=== PATIENT | female | born 1995 ===

== ENCOUNTER 2019-08-20 13:59 | Inpatient (IN) | payer OTHER ==
[~2019-08-20] VITALS: Ht 154.9 cm; Wt 63.5 kg
[2019-08-20] MEDS ORDERED: PRENATAL TABLE1 EAC1 PO (15:10)
[2019-08-20] MEDS ORDERED: VALTREX1000 MG PO (15:10)
== END 2019-08-23 16:55 | disposition home or self-care (01) | DRG 807 ==
LOC: OB/GYN 13:59 → LDR 13:59 → OB/GYN 08-21 01:38
PROVIDERS: ADMIT Obstetrics & Gynecology; ATTEND Obstetrics & Gynecology
PROC: 4A0HXFZ Measurement of Products of Conception, Cardiac Rhythm, External Approach (ICD-10-PCS; 2019-08-20)
PROC: 10E0XZZ Delivery of Products of Conception, External Approach (ICD-10-PCS; principal; 2019-08-21)
PROC: 0KQM0ZZ Repair Perineum Muscle, Open Approach (ICD-10-PCS; 2019-08-21)
DX: O70.1 Second degree perineal laceration during delivery (principal); Z37.0 Single live birth; Z3A.39 39 weeks gestation of pregnancy

== ENCOUNTER 2024-08-05 13:30 | Inpatient (IN) | payer OTHER ==
[~2024-08-05] VITALS: Ht 154.9 cm; Wt 70.3 kg
[~2024-08-05 13:30] MED LIST: PRENATAL TABLE1 EAC1 PO; VALTREX1000 MG PO
[2024-08-06] VITALS (11 sets, daily range): BP systolic 112–121; BP diastolic 58–75
[2024-08-06] MEDS ORDERED: RINGERS SOLUTION,LACTATED 1,000 ML IV SCH (05:30)
[2024-08-06] MEDS ORDERED: OXYTOCIN 20 UNITS/500ML RL PIGGYBAG IV ONE (06:25)
[2024-08-06 06:40] LABS: URINE APPEARANCE Clear; URINE BILIRRUBIN Negative (NEGATIVE); URINE BLOOD Negative; URINE COLOR Yellow; URINE GLUCOSE Negative (NEGATIVE); URINE KETONE Negative (NEGATIVE); URINE LEUKOCYTE Trace; URINE NITRATE Negative; URINE PROTEIN Negative (NEGATIVE); URINE UROBILINOGEN 0.2 E.U./dl
[2024-08-06 06:43] LABS: URINE EPITHELIAL CELLS 3.6 uL (0.0-38.8); URINE RBC 4.5 uL (0.0-20.8); URINE WBC 2.8 uL (0.0-23.2)
[2024-08-06] MEDS ORDERED: OXYTOCIN 500 ML IV SCH (06:45)
[2024-08-06 07:12] LABS: INR < 0.93; PARTIAL THROMBOPLASTIN TIME 25.6 SECONDS (22.0-34.0); PROTHROMBIN TIME 10.1 SECONDS (9.0-11.5)
[2024-08-06 07:13] LABS: BASO % 0.4 % (0.1-1.2); HEMATOCRIT 33.8 % (34.1-44.9); HEMOGLOBIN 11.5 g/dL (11.2-15.7); LYMPH # 2.22 (1.18-3.74); LYMPH % 22.1 % (19.3-53.1); MEAN CORPUSCULAR HEMOGLOBIN 29.3 pg (25.6-32.2); MONO # 0.73 (0.24-0.82); MONO % 7.3 % (4.7-12.5); NEUT # 6.89 (1.56-6.13); NEUT % 68.7 % (34.0-71.1); PLATELET COUNT 311 K/uL (163-369); RED BLOOD COUNT 3.92 M/uL (3.93-5.22); RED CELL DISTRIBUTION WIDTH 13.3 % (11.6-14.4)
[2024-08-06 07:38] LABS: BILIRUBIN TOTAL 0.28 mg/dL (0.3-1.2); CALCIUM 9.7 mg/dL (8.5-10.1); CREATININE SERUM 0.59 mg/dL (0.55-1.02); GFR 119.68; GLOBULINA 4.1 G/DL (2.4-3.5); POTASSIUM 4.28 mEq/L (3.5-5.1); TOTAL PROTEIN 7.1 gm/dL (6.4-8.2)
[2024-08-06] MEDS ORDERED: ERYTHROMYCIN BASE OPHT 1GM EACH TUBE OP ONE ×2 (09:29→11:00)
[2024-08-06] MEDS ORDERED: OXYTOCIN 20 UNITS/1000ML RL PIGGYBAG IV ONE (09:29)
[2024-08-06] MEDS ORDERED: CHLORHEXIDINE GLUCONATE 120 ML BOTTLE TOP ONE ×2 (09:30→11:00)
[2024-08-06] MEDS ORDERED: MORPHINE SULFATE 4 MG/ML VIAL IV ONE (09:30)
[2024-08-06] MEDS ORDERED: LIDOCAINE HCL 1% 10ML VIAL ONE (09:30)
[2024-08-06] MEDS ORDERED: ACETAMINOPHEN 500 MG GEL..CAP PO PRN (11:00)
[2024-08-06] MEDS ORDERED: IBUprofen 800 MG TABLET PO PRN (11:00)
[2024-08-06] MEDS ORDERED: OXYTOCIN 1,000 ML IV SCH (11:15)
[2024-08-06] MEDS ORDERED: LIDOCAINE HCL 1% 10ML VIAL IJ ONE (11:30)
[2024-08-06] MEDS ORDERED: OXYTOCIN 10 UNITS/ML VIAL ONE (12:16)
[2024-08-06] MEDS ORDERED: METHYLERGONOVINE MALEATE 0.2 MG/ML AMPUL ONE (12:16)
[2024-08-06] MEDS ORDERED: OXYTOCIN 10 UNITS/ML VIAL IV STA ×2 (12:37→12:44)
[2024-08-06] MEDS ORDERED: METHYLERGONOVINE MALEATE 0.2 MG/ML AMPUL IM STA (12:37)
[2024-08-06] MEDS ORDERED: BENZOCAINE/MENTHOL 90 ML BOTTLE TOP SCH (17:00)
[2024-08-06] MEDS ORDERED: HYDROCORTISONE 2.5% 30 GM TUBE RECTAL SCH (17:00)
[2024-08-07 01:00] VITALS: BP 105/67
[2024-08-07 02:27] LABS: BASO % 0.2 % (0.1-1.2); EOS # 0.04 (0.04-0.54); EOS % 0.2 % (0.7-7.0); HEMATOCRIT 29.4 % (34.1-44.9); LYMPH # 2.06 (1.18-3.74); LYMPH % 12.6 % (19.3-53.1); MEAN CORPUSCULAR HEMOGLOBIN 29.5 pg (25.6-32.2); MONO # 1.42 (0.24-0.82); MONO % 8.7 % (4.7-12.5); NEUT # 12.73 (1.56-6.13); NEUT % 77.8 % (34.0-71.1); PLATELET COUNT 277 K/uL (163-369); RED BLOOD COUNT 3.39 M/uL (3.93-5.22); RED CELL DISTRIBUTION WIDTH 13.4 % (11.6-14.4)
[2024-08-07 09:22] VITALS: BP 111/61
[2024-08-07 16:51] VITALS: BP 96/61
[2024-08-08 00:19] VITALS: BP 108/73
[2024-08-08 08:00] VITALS: BP 120/72
[2024-08-08 16:55] VITALS: BP 109/71
== END 2024-08-08 17:57 | disposition home or self-care (01) | DRG 807 ==
LOC: OB/GYN 08-06 05:19 → LDR 08-06 05:19 → OB/GYN 08-06 11:56
PROVIDERS: ADMIT Specialist; ATTEND Specialist
PROC: 10E0XZZ Delivery of Products of Conception, External Approach (ICD-10-PCS; principal; 2024-08-06)
PROC: 4A1HXCZ Monitoring of Products of Conception, Cardiac Rate, External Approach (ICD-10-PCS; 2024-08-06)
DX: O80 Encounter for full-term uncomplicated delivery (principal); Z37.0 Single live birth; Z3A.39 39 weeks gestation of pregnancy